=== PATIENT | male | born 1945 | race Caucasian/White ===

== ENCOUNTER → 2016-08-15 | Day surgery (SDC) | payer MEDICARE ==
[~2016-08-15] VITALS: Ht 175.3 cm; Wt 115.7 kg
[~2016-08-15] MED LIST: ACETAMINOPHEN 1000 MG/100 ML VIAL IV SCH; BUPIVACAINE/EPINEPHRINE 0.25% 50 ML VIAL INFIL ONE; CHLORHEXIDINE GLUCONATE 2 % 1 PACK (2 CLOTHS) TOPICAL PRN; CO Q100C9 PO; DIOV320T PO; DO NOT ADM ANY ANTICOAGULANT DRUGS PRN; FAMOTIDINE 20 MG/2 ML VIAL ONE; HYDR25TA5 PO; IBUP800T23 PO; INSULIN HUMAN REGULAR 1,000 UNITS/10 ML VIAL SQ PRN; KETOROLAC TROMETHAMINE 30 MG/ML (IVP) VIAL IV PUSH ONE; KETOROLAC TROMETHAMINE 30 MG/ML (IVP) VIAL ONE; LACTATED RINGER'S 1000 ML INJ 1,000 ML IV ONE; LACTATED RINGER'S 1000 ML IV PRN; METOPROLOL TARTRATE 25 MG TAB PO PRN; MIDAZOLAM HCL 2 MG/2 ML VIAL ONE; MORPHINE SULFATE 4 MG/ML INJ IV PRN; NEOSTIGMINE 3 MG/3 ML SYR IV ONE; ONDANSETRON HCL 4 MG/2 ML VIAL IV PRN; ONDANSETRON HCL 4 MG/2 ML VIAL IV PUSH ONE; PHENYLEPH/NS 1000 MCG/10 ML SYR IV ONE; POVIDONE IODINE 5% (ANTISEPSIS KIT) 4 APPLICATIONS EACH NARE PRN; PROPOFOL 200 MG/20 ML AMP IV ONE; ROSU40 PO; SODIUM CHLORID 0.9% 500 ML IV PRN; SODIUM CHLORIDE 0.9% FLUSH 10 ML FLUSH IV FLUSH PRN; SODIUM CHLORIDE 0.9% FLUSH 10 ML FLUSH IV FLUSH SCH; ceFAZolin 2 GM PREMIX 50 ML IV SCH; ePHEDrine/NS 25 MG/5 ML SYR IV ONE; fentaNYL CITRATE 250 MCG/5 ML AMP ONE; oxyCODONE/ACETAMINOPHEN 5 MG/325 MG TAB PO PRN
[2016-08-15 07:22] VITALS: BP 156/80; PULSE 75; RESP 18; TEMP 98.1; O2SAT 97
--- NOTE | 2016-08-15 11:47 | PD.OP ---
cc: Manish Crane MD Operative Report Date of Surgery: Aug 15, 2016 Preoperative Diagnosis: Recurrent ventral incisional hernia Postoperative Diagnosis: Recurrent ventral incisional hernia Procedure: Laparoscopic repair of ventral incisional hernia with ventral light ST mesh and echo deployment system Anesthesia: Gen. endotracheal Surgeon: Manish Crane Water Well Driller(s): Carolyn De Luna MS3 Operation and Findings: Operative findings: The patient had a 4-4.5 cm recurrent periumbilical hernia. There was one strand of omentum which was lightly attached to the inferior portion of the hernia sac but otherwise there was no evidence of incarceration. No other abnormalities were noted. The patient did have a fair amount of preperitoneal fat which was taken down. On Operative procedure: The patient was brought to the operating room and after placement of a endotracheal tube satisfactory general endotracheal anesthesia was obtained and the patient underwent placement of a TA P block by anesthesia. The abdomen was then prepped and draped in usual sterile fashion. 0.25% Marcaine with epinephrine was used to infiltrate the skin for local anesthesia. An incision was made in the left subcostal region. Using a hemostat the fascia was and a Kim clamp was used to separate the muscle fibers and 10th the peritoneum. A defect was then created in the peritoneum by blunt dissection with care being taken not to injure the underlying viscera. A 12 mm GelPort was inserted into the perineal cavity and the abdomen then distended to 15 mmHg using carbon dioxide. The camera was inserted and visceral injury inspected for none being identified. Under direct visualization 5 mm trochars were placed in the left and right lower quadrants and the right upper quadrant. The omentum was taken down the Harmonic scalpel after which the inspissated fat along the peritoneal surfaces were was taken down with the Harmonic scalpel as well with hemostasis strictly assured. Once the peritoneum had been cleared enough to place the mesh measurement was undertaken and a 15 x 20 cm piece of ventral light ST mesh was selected. The mesh was rolled, soaked in saline then inserted in the perineal cavity under direct visualization through the GelPort. It was unfurled and the site for exit of the insufflation tubing was selected and a Derry suture passer was used to bring the tubing externally. The backbone of the mesh was then inflated and the mesh was brought into close approximation to the anterior abdominal wall where was held in place with a hemostat at the level of the skin. The mesh was then oriented properly and a tacker was used to secure it circumferentially to allow withdrawing of the mesh backbone which was accomplished without problem. The mesh was then completely tacked in place to allow adequate coverage of the entire hernia defect and have the mesh as flat as possible against the peritoneal surface. Hemostasis was checked for and found be satisfactory the mesh was seen to cover the defect well in all directions as well as providing coverage for the patient's diastases recti. The carbon dioxide was then vented as completely as possible to the atmosphere after which the ports were removed and the 12 mm fascial defect was closed with interrupted 0 Vicryl suture and the skin closed with interrupted 4-0 PDS subcutaneous tacker stitches. Steri-Strips and a sterile dressing were placed the patient was then awakened and taken from the operating room in satisfactory condition, having tolerated procedure without pollen. Estimated blood loss was less than 10 mL's. The instrument, sponge, and needle counts were reported as being correct 2 at the end of the procedure. Manish Crane MD Aug 15, 2016 11:47
[2016-08-15 13:35] VITALS: BP 142/76; PULSE 92; RESP 18; TEMP 97.9; O2SAT 98
== END | disposition home or self-care (01) ==
LOC: HSDC 06:34
PROVIDERS: ATTEND Surgery
DX: K43.2 Incisional hernia without obstruction or gangrene (principal); I12.0 Hypertensive chronic kidney disease with stage 5 chronic kidney disease or end stage renal disease; N18.5 Chronic kidney disease, stage 5; E78.5 Hyperlipidemia, unspecified; G47.33 Obstructive sleep apnea (adult) (pediatric); E66.9 Obesity, unspecified; Z68.37 Body mass index [BMI] 37.0-37.9, adult; Z85.828 Personal history of other malignant neoplasm of skin
CPT/HCPCS: 00752; 49654; C1781; J0131; J0690; J1885; J2250; J2370; J2405; J2710; J3010; J7120

== ENCOUNTER 2016-09-29 09:48 | Emergency (ER) | payer MEDICARE ==
[~2016-09-29] VITALS: Ht 177.8 cm; Wt 119.1 kg
[~2016-09-29 09:48] MED LIST changes: -ACETAMINOPHEN 1000 MG/100 ML VIAL IV SCH; -BUPIVACAINE/EPINEPHRINE 0.25% 50 ML VIAL INFIL ONE; -CHLORHEXIDINE GLUCONATE 2 % 1 PACK (2 CLOTHS) TOPICAL PRN; -DO NOT ADM ANY ANTICOAGULANT DRUGS PRN; -FAMOTIDINE 20 MG/2 ML VIAL ONE; -INSULIN HUMAN REGULAR 1,000 UNITS/10 ML VIAL SQ PRN; -KETOROLAC TROMETHAMINE 30 MG/ML (IVP) VIAL IV PUSH ONE; -KETOROLAC TROMETHAMINE 30 MG/ML (IVP) VIAL ONE; -LACTATED RINGER'S 1000 ML INJ 1,000 ML IV ONE; -LACTATED RINGER'S 1000 ML IV PRN; -METOPROLOL TARTRATE 25 MG TAB PO PRN; -MIDAZOLAM HCL 2 MG/2 ML VIAL ONE; -MORPHINE SULFATE 4 MG/ML INJ IV PRN; -NEOSTIGMINE 3 MG/3 ML SYR IV ONE; -ONDANSETRON HCL 4 MG/2 ML VIAL IV PRN; -ONDANSETRON HCL 4 MG/2 ML VIAL IV PUSH ONE; -PHENYLEPH/NS 1000 MCG/10 ML SYR IV ONE; -POVIDONE IODINE 5% (ANTISEPSIS KIT) 4 APPLICATIONS EACH NARE PRN; -PROPOFOL 200 MG/20 ML AMP IV ONE; -SODIUM CHLORID 0.9% 500 ML IV PRN; -SODIUM CHLORIDE 0.9% FLUSH 10 ML FLUSH IV FLUSH PRN; -SODIUM CHLORIDE 0.9% FLUSH 10 ML FLUSH IV FLUSH SCH; -ceFAZolin 2 GM PREMIX 50 ML IV SCH; -ePHEDrine/NS 25 MG/5 ML SYR IV ONE; -fentaNYL CITRATE 250 MCG/5 ML AMP ONE; -oxyCODONE/ACETAMINOPHEN 5 MG/325 MG TAB PO PRN
[2016-09-29 10:00] VITALS: BP 184/96; PULSE 85; RESP 18; TEMP 97.6; O2SAT 98
[2016-09-29] MEDS ORDERED: SODIUM CHLOR 0.9% 1000 ML INJ 1,000 ML IV ONE (10:01)
[2016-09-29] MEDS ORDERED: ZOFR4TAB3 SL (10:06)
--- NOTE | 2016-09-29 10:07 | PD ---
HPI Chief Complaint: GI Complaint Time Seen by Provider: 09:53 Travel History International Travel<30 days: No Contact w/Intl Traveler<30days: No Traveled to known affect area: No History of Present Illness HPI 70-year-old male arrives by private vehicle. Last night he vomited about 20 times. Flatus in bowel habits have been normal, no diarrhea. No bloody emesis was observed. Patient states he drank 18 beers last night, much more than normal for him. Typically he drinks about 4 beers tonight. He denies abdominal pain. He believes he has a "real bad hangover." PFSH Past Medical History Arthritis: Yes Blood Disorders: No Cancer: No Cardiovascular Problems: No Diabetes: No Endocrine: No Genitourinary: No Hepatitis: No Hiatal Hernia: No Hypertension: Yes Immune Disorder: No Musculoskeletal: Yes Neurologic: No Psychiatric: No Reproductive: No Respiratory: No Thyroid Disease: No Past Surgical History Abdominal Surgery: Yes (RIGHT INGUINAL HERNIA REPAIR-VASECTOMY) AICD: No Cardiac Surgery: No Ear Surgery: No Endocrine Surgery: No Eye Surgery: No Genitourinary Surgery: No Joint Replacement: Yes (L hip) Oral Surgery: Yes (TONSILS) Pacemaker: No Thoracic Surgery: No Social History Alcohol Use: Yes (3 BEERS DAIY) Tobacco Use: No Substance Use: No Allergies-Medications (Allergen,Severity, Reaction): Coded Allergies: Codeine (Verified Adverse Reaction, Intermediate, VOMITING, 08/15/16) Reported Meds & Prescriptions Reported Meds & Active Scripts Active Reported Ibuprofen 800 Mg Tab 800 Mg PO Q6HR PRN Co Q 10 (Coenzyme Q10 (Ubidecarenone)) 100 Mg Cap 100 Mg PO DAILY Crestor (Rosuvastatin Calcium) 40 Mg Tab 40 Mg PO DAILY Hydrochlorothiazide 25 Mg Tab 25 Mg PO DAILY Diovan (Valsartan) 320 Mg Tab 320 Mg PO DAILY Review of Systems Except as stated in HPI: all other systems reviewed are Neg General / Constitutional: No: Fever Physical Exam Narrative GENERAL: 70-year-old male well-nourished well-developed distress speaking full sentences SKIN: Warm and dry. HEAD: Atraumatic. Normocephalic. EYES: Pupils equal and round. No scleral icterus. No injection or drainage. ENT: No nasal bleeding or discharge. Mucous membranes pink and moist. NECK: Trachea midline. No JVD. CARDIOVASCULAR: Regular rate and rhythm. RESPIRATORY: No accessory muscle use. Clear to auscultation. Breath sounds equal bilaterally. GASTROINTESTINAL: Soft. Somewhat protuberant. No focus of tenderness. MUSCULOSKELETAL: Extremities without clubbing, cyanosis, or edema. No obvious deformities. NEUROLOGICAL: Awake and alert. No obvious cranial nerve deficits. Motor grossly within normal limits. Five out of 5 muscle strength in the arms and legs. Normal speech. PSYCHIATRIC: Appropriate mood and affect; insight and judgment normal. Data Data Last Documented VS Vital Signs Date Time Temp Pulse Resp B/P Pulse Ox O2 Delivery O2 Flow Rate FiO2 09/29/16 11:12 86 18 183/86 99 Room Air 09/29/16 10:00 97.6 Vital signs reviewed Orders Sodium Chlor 0.9% 1000 Ml Inj (Ns 1000 M (09/29/16 10:01) Iv Access Insert/Monitor (09/29/16 10:01) Ecg Monitoring (09/29/16 10:01) Oximetry (09/29/16 10:01) Al-Mag Hy-Si 40-40-4 Mg/Ml Liq (Mag-Al P (09/29/16 10:15) Lidocaine 2% Viscous (Xylocaine 2% Visco (09/29/16 10:15) Complete Blood Count With Diff (09/29/16 10:01) Comprehensive Metabolic Panel (09/29/16 10:01) Labs Laboratory Tests Test 09/29/16 10:21 White Blood Count 8.4 TH/MM3 Red Blood Count 4.46 MIL/MM3 Hemoglobin 14.5 GM/DL Hematocrit 42.7 % Mean Corpuscular Volume 95.7 FL Mean Corpuscular Hemoglobin 32.5 PG Mean Corpuscular Hemoglobin 33.9 % Concent Red Cell Distribution Width 13.2 % Platelet Count 192 TH/MM3 Mean Platelet Volume 7.5 FL Neutrophils (%) (Auto) 75.4 % Lymphocytes (%) (Auto) 12.8 % Monocytes (%) (Auto) 8.2 % Eosinophils (%) (Auto) 0.6 % Basophils (%) (Auto) 3.0 % Neutrophils # (Auto) 6.2 TH/MM3 Lymphocytes # (Auto) 1.1 TH/MM3 Monocytes # (Auto) 0.7 TH/MM3 Eosinophils # (Auto) 0.1 TH/MM3 Basophils # (Auto) 0.3 TH/MM3 CBC Comment DIFF FINAL Differential Comment Sodium Level 123 MEQ/L Potassium Level 4.3 MEQ/L Chloride Level 90 MEQ/L Carbon Dioxide Level 23.3 MEQ/L Anion Gap 10 MEQ/L Blood Urea Nitrogen 16 MG/DL Creatinine 1.00 MG/DL Estimat Glomerular Filtration 74 ML/MIN Rate Random Glucose 103 MG/DL Calcium Level 9.0 MG/DL Total Bilirubin 0.9 MG/DL Aspartate Amino Transf 22 U/L (AST/SGOT) Alanine Aminotransferase 25 U/L (ALT/SGPT) Alkaline Phosphatase 84 U/L Total Protein 6.7 GM/DL Albumin 3.8 GM/DL [facility] Medical Decision Making Medical Screen Exam Complete: Yes Emergency Medical Condition: Yes Medical Record Reviewed: Yes Differential Diagnosis Constipation, Gastritis, Acute Cholecystitis, Biliary Colic, Pancreatitis, IVEY , Hepatitis, Bowel Obstruction, Cystitis, Mesenteric Ischemia, AAA, Appendicitis , Renal Stone/Hydronephrosis, GERD, perforated viscous Narrative Course CBC & BMP Diagram 09/29/16 10:21 LFTs are normal Time reassessment, 11:50 AM, the patient reports feeling much better. Note is made of hyponatremia which in this case is considered most in keeping with alcohol intoxication yesterday. Increase sodium intake today encouraged. Patient verbalized agreement. Return precautions discussed. he is ready for discharge. Diagnosis Primary Impression: Nausea & vomiting Qualified Code: R11.2 - Non-intractable vomiting with nausea, unspecified vomiting type Referrals: Primary Care Physician call for appointment Additional Instructions: IF VOMITING PERSISTS DESPITE MEDICATION OR IF YOU DEVELOP ABDOMINAL PAIN OR FEVER PLEASE RETURN TO THE ER WITHOUT DELAY. PLEASE BE SURE TO DRINK ALCOHOL IN MODERATION. PLEASE TAKE ZOFRAN NEEDED EVERY 6-8 HOURS FOR NAUSEA AND/OR VOMITING. TRY TO DRINK MUCH LIQUIDS POSSIBLE TODAY, SUCH WATER, GATORADE OR UNSWEETENED TEA. Med/Other Pt SpecificInfo: Prescription(s) given Disposition: 01 DISCHARGE HOME Condition: Stable Marcelino Garber MD Sep 29, 2016 10:07
[2016-09-29] MEDS ORDERED: LIDOCAINE VISCOUS 2% SOLN 15 ML UDC PO ONE (10:15)
[2016-09-29] MEDS ORDERED: ALUMINUM/MAGNESIUM/SIMETH 30 ML CUP PO ONE (10:15)
[2016-09-29 10:29] LABS: AUTOMATED NEUTROPHIL # 6.2 TH/MM3 (1.8-7.7); BASOPHIL # 0.3 TH/MM3 (0-0.2); EOSINOPHIL # 0.1 TH/MM3 (0-0.4); EOSINOPHIL % 0.6 % (0.0-4.0); HEMATOCRIT 42.7 % (39.0-51.0); LYMPH % 12.8 % (9.0-44.0); LYMPHOCYTE # 1.1 TH/MM3 (1.0-4.8); MEAN CELL VOLUME 95.7 FL (80.0-100.0); MEAN CORPUSCULAR HEMOGLOBIN 32.5 PG (27.0-34.0); MEAN CORPUSCULAR HGB CONC 33.9 % (32.0-36.0); MONO % 8.2 % (0.0-8.0); NEUT % 75.4 % (16.0-70.0); PLATELET COUNT 192 TH/MM3 (150-450); RED BLOOD COUNT 4.46 MIL/MM3 (4.50-5.90); RED CELL DISTRIBUTION WIDTH 13.2 % (11.6-17.2); WHITE BLOOD COUNT 8.4 TH/MM3 (4.0-11.0)
[2016-09-29 10:57] LABS: HEMO FLAGS DIFF FINAL
[2016-09-29 11:12] VITALS: BP 183/86; PULSE 86; RESP 18; O2SAT 99
[2016-09-29 11:42] LABS: ALKALINE PHOSPHATASE 84 U/L (45-117); ALT (GPT) 25 U/L (12-78); ANION GAP 10 MEQ/L (5-15); AST (GOT) 22 U/L (15-37); BICARBONATE 23.3 MEQ/L (21.0-32.0); BLOOD UREA NITROGEN 16 MG/DL (7-18); CHLORIDE 90 MEQ/L (98-107); GLOMERULAR FILTRATION RATE 74 ML/MIN (>89); POTASSIUM 4.3 MEQ/L (3.5-5.1); TOTAL BILIRUBIN ADULT 0.9 MG/DL (0.2-1.0)
[2016-09-29 11:43] LABS: SODIUM (NA) 123 MEQ/L (136-145)
== END 2016-09-29 12:00 | disposition home or self-care (01) ==
LOC: PHED 09:48
DX: R11.2 Nausea with vomiting, unspecified (principal)
CPT/HCPCS: 80053; 85025; 99283; J7030

== ENCOUNTER → 2017-02-21 | Outpatient (CLI) | payer MEDICARE ==
[~2017-02-21] MED LIST changes: +IBUP1TAB7 PO; -IBUP800T23 PO
--- NOTE | 2017-02-23 09:55 | RSPPFT ---
DATE OF PROCEDURE: 02/21/17 COMMENTS: Spirometry shows FVC of 3.8 predicted 4.1, FEV1 of 2.9 predicted 3.2, FEV1/FVC ratio 77% predicted 78%. Lung volumes are basically within the predicted range as well as the DLCO. IMPRESSION: On the basis of the above, patient has flow values, lung volumes and DLCO within the predicted range.
== END ==
LOC: PHRSP 07:37
PROVIDERS: ATTEND Internal Medicine Pulmonary Disease
DX: R05 Cough (principal); J44.9 Chronic obstructive pulmonary disease, unspecified
CPT/HCPCS: 36600; 82805; 94060; 94618; 94726; 94729